=== PATIENT | male | born 2000 | race Two or more races ===

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

== ENCOUNTER 2023-07-07 06:52 | Emergency (ER) | payer OTHER ==
[~2023-07-07] VITALS: Ht 170.2 cm; Wt 81.8 kg
[2023-07-07 06:55] VITALS: BP 140/74; PULSE 96; RESP 15; TEMP 98.6
[2023-07-07] MEDS ORDERED: PERTUSS(ACELL),DIPH,TET VAC/PF 0.5 ML SYRINGE IM. ONE (07:30)
[2023-07-07] MEDS ORDERED: BACI28.410 TP (07:41)
== END 2023-07-07 08:02 | disposition home or self-care (01) ==
LOC: EMS 06:55
DX: L76.12 Accidental puncture and laceration of skin and subcutaneous tissue during other procedure (principal)
CPT/HCPCS: 90471; 90715; 99283